=== PATIENT | male | born 1990 | race Caucasian/White ===

== ENCOUNTER 2016-07-12 11:43 | Emergency (ER) | payer SELFPAY ==
[~2016-07-12] VITALS: Ht 180.3 cm; Wt 68.0 kg
[~2016-07-12 11:43] MED LIST: AMOXICILLIN500 MG PO; CORTISPORIN SUS10 ML OT; MOTRIN800 MG PO; PREDNISONE10 MG PO; ROBITUSSIN AC 110 ML PO; TYLENOL W/CODE480 ML PO
[2016-07-12] MEDS ORDERED: FLONASE ALLERG9.9 ML NAS (12:33)
[2016-07-12] MEDS ORDERED: CLARITIN10 MG PO (12:33)
[2016-07-12] MEDS ORDERED: PREDNISONE10 MG PO (12:33)
[2016-07-12] MEDS ORDERED: ROBITUSSIN AC 110 ML PO (12:33)
== END 2016-07-12 13:56 | disposition home or self-care (01) ==
LOC: ED 11:43
DX: J10.1 Influenza due to other identified influenza virus with other respiratory manifestations (principal); R03.0 Elevated blood-pressure reading, without diagnosis of hypertension; F17.200 Nicotine dependence, unspecified, uncomplicated

== ENCOUNTER 2017-07-29 10:44 | Emergency (ER) | payer OTHER ==
[~2017-07-29] VITALS: Ht 180.3 cm; Wt 108.9 kg
[~2017-07-29 10:44] MED LIST changes: +CLARITIN10 MG PO; +FLONASE ALLERG9.9 ML NAS
[2017-07-29] MEDS ORDERED: PREDNISONE20 M1 PO (14:32)
[2017-07-29] MEDS ORDERED: TESSALON PERLE100 M1 PO (14:32)
[2017-07-29] MEDS ORDERED: ZITHROMAX250 MG PO (14:32)
[2017-07-29] MEDS ORDERED: ALBUTEROL2.5 MG/0.5 INH (14:32)
== END 2017-07-29 14:30 | disposition home or self-care (01) ==
LOC: ED 10:44
DX: J40 Bronchitis, not specified as acute or chronic (principal); F17.200 Nicotine dependence, unspecified, uncomplicated

== ENCOUNTER 2019-10-21 09:40 | Emergency (ER) | payer OTHER ==
[~2019-10-21] VITALS: Ht 180.3 cm; Wt 92.5 kg
[~2019-10-21 09:40] MED LIST changes: +ALBUTEROL2.5 MG/0.5 INH; +PREDNISONE20 M1 PO; +TESSALON PERLE100 M1 PO; +ZITHROMAX250 MG PO
[2019-10-21] MEDS ORDERED: CORTISPORIN SUS10 ML OT (10:26)
== END 2019-10-21 10:09 | disposition home or self-care (01) ==
LOC: ED 09:40
DX: T16.2XXA Foreign body in left ear, initial encounter (principal); S00.412A Abrasion of left ear, initial encounter; X58.XXXA Exposure to other specified factors, initial encounter; Y93.89 Activity, other specified; Y92.89 Other specified places as the place of occurrence of the external cause; Y99.8 Other external cause status

== ENCOUNTER 2021-02-11 13:21 | Emergency (ER) | payer OTHER ==
[2021-02-11] MEDS ORDERED: ZYRTEC10 M2 PO (14:40)
== END 2021-02-11 14:50 | disposition home or self-care (01) ==
LOC: ED 13:21
DX: J31.0 Chronic rhinitis (principal); Z20.822 Contact with and (suspected) exposure to COVID-19; F17.200 Nicotine dependence, unspecified, uncomplicated; Z79.2 Long term (current) use of antibiotics